=== PATIENT | female | born 1980 | race Hispanic/Latino ===

== ENCOUNTER 2019-09-12 12:19 | Emergency (ER) | payer OTHER ==
[~2019-09-12] VITALS: Ht 149.9 cm; Wt 59.0 kg
[~2019-09-12 12:19] MED LIST: AMLODIPINE BESYL5 MG PO; AUGMENTIN 875-1 EACH PO; CETIRIZINE HCL10 MG PO; LEXAPRO10 MG PO; TYLENOL # 31 EA PO
[2019-09-12] MEDS ORDERED: KETOROLAC TROMETHAMINE 30 MG/ML VIAL IV STA (12:29)
[2019-09-12] MEDS ORDERED: ONDANSETRON HCL INJ 2MG/ML 2ML 2 MG/ML VIAL IV STA (12:29)
[2019-09-12] MEDS ORDERED: SODIUM CHLORIDE 0.9% 1000ML 1,000 ML IV STA (12:29)
[2019-09-12 12:56] LABS: BASOPHILS % 0.4 % (0.0-1.0); EOSINOPHILS # (AUTO) 0.1 (0.0-0.4); EOSINOPHILS % 1.1 % (0.0-6.0); HEMATOCRIT 36.9 % (34.2-44.1); HEMOGLOBIN 12.7 g/dL (12.0-16.0); LYMPHOCYTES # (AUTO) 2.4 (1.0-3.2); LYMPHOCYTES % 25.5 % (18.0-39.1); MEAN CORPUSCULAR HGB CONC 34.4 g/dL (31-35); MONOCYTES # (AUTO) 0.6 (0.2-0.8); MONOCYTES % 6.3 % (4.4-11.3); NEUTROPHILS # (AUTO) 6.2 (2.1-6.9); NEUTROPHILS % 66.3 % (38.7-80.0); PLATELET COUNT 307 x10e3/uL (140-360); RED BLOOD COUNT 4.24 x10e6/uL (3.6-5.1); RED CELL DISTRIBUTION WIDTH 11.7 % (11.7-14.4)
[2019-09-12 13:22] LABS: ALANINE AMINOTRANSFERASE 31 IU/L (0-55); ALBUMIN 4.3 g/dL (3.5-5.0); ALBUMIN/GLOBULIN RATIO 1.3 (0.8-2.0); ALKALINE PHOSPHATASE 45 IU/L (40-150); ANION GAP 13.8 mmol/L (8-16); BLOOD UREA NITROGEN 13 mg/dL (7-26); BUN/CREATININE RATIO 18 (6-25); CALCIUM 9.4 mg/dL (8.4-10.2); CARBON DIOXIDE 24 mmol/L (22-29); CHLORIDE 102 mmol/L (98-107); CREATININE, SERUM 0.74 mg/dL (0.57-1.11); EST GLOMERULAR FILTRATION RATE > 60 ML/MIN (60-); GLUCOSE 100 mg/dL (74-118); POTASSIUM 3.8 mmol/L (3.5-5.1); SODIUM 136 mmol/L (136-145)
[2019-09-12 13:29] LABS: PREGNANCY TEST, URINE NEGATIVE (NEGATIVE)
[2019-09-12 13:30] LABS: BILIRUBIN,URINE NEGATIVE (NEGATIVE); CLARITY,URINE CLEAR (CLEAR); COLOR,URINE YELLOW (YELLOW); KETONES,URINE TRACE (NEGATIVE); LEUKOCYTE ESTERASE ,URINE NEGATIVE (NEGATIVE); NITRITE,URINE NEGATIVE (NEGATIVE); PROTEIN,URINE DIPSTICK NEGATIVE (NEGATIVE); URINE UROBILINOGEN 0.2 mg/dL (0.2 - 1)
[2019-09-12 13:46] LABS: RBC,URINE 0-5 /HPF (0-5); WBC,URINE (MAN) 0-5 /HPF (0-5)
[2019-09-12 13:47] LABS: BACTERIA,URINE MODERATE /HPF; EPITHELIAL CELLS,URINE MODERATE /LPF; HYALINE CASTS 0-1 (0-1); MUCUS,URINE MODERATE (RARE)
--- NOTE | 2019-09-12 14:17 | Diagnostic Imaging Report ---
EXAM: CT Abdomen and Pelvis WITHOUT intravenous contrast INDICATION: Hematuria, flank pain COMPARISON: None. TECHNIQUE: Abdomen and pelvis were scanned utilizing a multidetector helical scanner from the lung base to the pubic symphysis without administration of IV contrast. Coronal and sagittal reformations were obtained. IV CONTRAST: None ORAL CONTRAST: Water COMPLICATIONS: None RADIATION DOSE: Total DLP: 257.6 mGy*cm Dose modulation, iterative reconstruction, and/or weight based adjustment of the mA/kV was utilized to reduce the radiation dose to as low as reasonably achievable. FINDINGS: LOWER THORAX: Unremarkable. HEPATOBILIARY: 1.6 cm right hepatic cyst. No other focal liver lesions. Absent gallbladder. SPLEEN: No splenomegaly. PANCREAS: No focal masses or ductal dilatation. ADRENALS: No adrenal nodules. KIDNEYS/URETERS: 5 mm right proximal ureteral calculus with associated mild right hydroureteronephrosis. Additional 4 mm right upper pole renal calculus and 2 mm right lower pole renal calculus. 2 mm left midpole renal calculus. No left hydronephrosis or hydroureter. PELVIC ORGANS/BLADDER: Unremarkable. PERITONEUM / RETROPERITONEUM: No free air or fluid. LYMPH NODES: No lymphadenopathy. VESSELS: Unremarkable. GI TRACT: No abnormal bowel wall thickening. No bowel obstruction. Normal appendix BONES AND SOFT TISSUES: No acute osseous injury. No suspicious lytic or blastic lesions. IMPRESSION: 5 mm right proximal ureteral calculus with associated mild right hydroureteronephrosis. Additional right renal calculi measure up to 4 mm. Nonobstructive 2 mm left midpole renal calculus. No left hydronephrosis or hydroureter. Signed by: Gwen Boykin MD on 09/12/2019 2:14 PM
[2019-09-12 15:04] VITALS: BP 133/90
[2019-09-14] MEDS ORDERED: LISINOPRIL-HCT1 EAC2 PO (00:52)
== END 2019-09-12 15:05 | disposition home or self-care (01) ==
LOC: ER 12:19
DX: M54.5 Low back pain (principal); R11.0 Nausea; R10.813 Right lower quadrant abdominal tenderness; N20.0 Calculus of kidney; I10 Essential (primary) hypertension; F41.9 Anxiety disorder, unspecified
CPT/HCPCS: 36415; 74176; 80053; 81001; 81025; 85025; 99284; J1885; J2405; J7030

== ENCOUNTER 2019-09-23 07:29 | Observation (INO) | payer OTHER ==
[~2019-09-23] VITALS: Ht 144.8 cm; Wt 64.4 kg
[2019-09-23] MEDS: SODIUM CHLORIDE 0.9% 1000ML 1,000 ML IV SCH ×2 (00:42→11:10)
[~2019-09-23 07:29] MED LIST changes: +LISINOPRIL-HCT1 EAC2 PO
[2019-09-23] MEDS ORDERED: SODIUM CHLORIDE 0.9% 1000ML 1,000 ML IV STA (07:43)
--- NOTE | 2019-09-23 07:50 | NUR ---
PT PLACED ON STRETCHER IN ROOM 8, PVR COMPLETED WITH NO URINE TO NOTE IN BLADDER PER ULTRASOUND; PER DR. MONTGOMERY PT IS TO TAKE HOME DOSE OF LISINOPRIL, TAKING AT THIS TIME; UPDATED ON PLAN OF CARE AND PENDING EXAMS.
[2019-09-23 08:04] LABS: BASOPHILS # (AUTO) 0.1 (0.0-0.1); EOSINOPHILS # (AUTO) 0.3 (0.0-0.4); EOSINOPHILS % 3.9 % (0.0-6.0); HEMATOCRIT 37.1 % (34.2-44.1); HEMOGLOBIN 12.5 g/dL (12.0-16.0); LYMPHOCYTES # (AUTO) 3.2 (1.0-3.2); LYMPHOCYTES % 47.3 % (18.0-39.1); MEAN CORPUSCULAR HEMOGLOBIN 29.8 pg (28-32); MEAN CORPUSCULAR HGB CONC 33.7 g/dL (31-35); MEAN CORPUSCULAR VOLUME 88.5 fL (81-99); MONOCYTES # (AUTO) 0.5 (0.2-0.8); MONOCYTES % 7.2 % (4.4-11.3); NEUTROPHILS # (AUTO) 2.8 (2.1-6.9); NEUTROPHILS % 40.3 % (38.7-80.0); PLATELET COUNT 354 x10e3/uL (140-360); RED BLOOD COUNT 4.19 x10e6/uL (3.6-5.1); RED CELL DISTRIBUTION WIDTH 11.6 % (11.7-14.4)
--- NOTE | 2019-09-23 08:08 | NUR ---
PT REFUSING MEDICATIONS AT THIS TIME, STATES "I AM NOT REALLY IN PAIN, I AM FINE RIGHT NOW, I JUST HAVE INTERMITTENT PRESSURE WHEN I HAVE TO PEE", INFORMED PT ORDERS AND SHE VERBALIZED UNDERSTANDING.
[2019-09-23 08:10] LABS: BILIRUBIN,URINE NEGATIVE (NEGATIVE); COLOR,URINE YELLOW (YELLOW); KETONES,URINE NEGATIVE (NEGATIVE); LEUKOCYTE ESTERASE ,URINE SMALL (NEGATIVE); NITRITE,URINE NEGATIVE (NEGATIVE); PROTEIN,URINE DIPSTICK 2+ (NEGATIVE); URINE UROBILINOGEN 0.2 mg/dL (0.2 - 1)
[2019-09-23 08:11] LABS: CLARITY,URINE HAZY (CLEAR)
[2019-09-23 08:23] LABS: ALANINE AMINOTRANSFERASE 93 IU/L (0-55); ALBUMIN 4.1 g/dL (3.5-5.0); ALBUMIN/GLOBULIN RATIO 1.2 (0.8-2.0); ALKALINE PHOSPHATASE 63 IU/L (40-150); ANION GAP 14.5 mmol/L (8-16); BACTERIA,URINE FEW /HPF; BLOOD UREA NITROGEN 13 mg/dL (7-26); BUN/CREATININE RATIO 19 (6-25); CALCIUM 9.5 mg/dL (8.4-10.2); CARBON DIOXIDE 24 mmol/L (22-29); CHLORIDE 104 mmol/L (98-107); CREATININE, SERUM 0.69 mg/dL (0.57-1.11); EPITHELIAL CELLS,URINE FEW /LPF; EST GLOMERULAR FILTRATION RATE > 60 ML/MIN (60-); GLUCOSE 108 mg/dL (74-118); POTASSIUM 3.5 mmol/L (3.5-5.1); RBC,URINE 21-50 /HPF (0-5); SODIUM 139 mmol/L (136-145)
[2019-09-23] MEDS ORDERED: KETOROLAC TROMETHAMINE 30 MG/ML VIAL IV ONE (08:30)
[2019-09-23] MEDS ORDERED: ONDANSETRON HCL INJ 2MG/ML 2ML 2 MG/ML VIAL IV ONE (08:30)
--- NOTE | 2019-09-23 09:21 | Diagnostic Imaging Report ---
EXAM: CT Abdomen and Pelvis WITHOUT intravenous contrast INDICATION: Flank pain COMPARISON: CT abdomen and pelvis of 09/12/2019 TECHNIQUE: Abdomen and pelvis were scanned utilizing a multidetector helical scanner from the lung base to the pubic symphysis without administration of IV contrast. Coronal and sagittal reformations were obtained. IV CONTRAST: None ORAL CONTRAST: Water COMPLICATIONS: None RADIATION DOSE: Total DLP: 281.3 mGy*cm Dose modulation, iterative reconstruction, and/or weight based adjustment of the mA/kV was utilized to reduce the radiation dose to as low as reasonably achievable. FINDINGS: LOWER THORAX: Normal. HEPATOBILIARY: 1.2 cm segment 8 of liver cyst. No other focal liver lesions. Status post cholecystectomy. SPLEEN: No splenomegaly. PANCREAS: No focal masses or ductal dilatation. ADRENALS: No adrenal nodules. KIDNEYS/URETERS: Right internal nephroureteral stent in good position. 2 mm right lower pole renal calculus. No hydronephrosis. 2 mm nonobstructive left lower pole renal calculus. PELVIC ORGANS/BLADDER: Decompressed bladder. Status post hysterectomy. PERITONEUM / RETROPERITONEUM: No free air or fluid. LYMPH NODES: No lymphadenopathy. VESSELS: Unremarkable. GI TRACT: No abnormal bowel thickening. No bowel obstruction. Normal appendix. BONES AND SOFT TISSUES: Unremarkable. IMPRESSION: Right internal nephroureteral stent in good position. 2 mm right and left lower pole renal calculi. No hydronephrosis. Signed by: Gwen Boykin MD on 09/23/2019 9:17 AM
[2019-09-23] MEDS ORDERED: ONDANSETRON HCL INJ 2MG/ML 2ML 2 MG/ML VIAL IV PRN (09:45)
[2019-09-23] MEDS ORDERED: MORPHINE SULFATE 2 MG/ML SYR 1ML IV PRN (09:45)
[2019-09-23] MEDS ORDERED: CEFTRIAXONE SOD 1 GM/NS 50 ML 50 ML IV ONE (10:00)
--- NOTE | 2019-09-23 10:10 | NUR ---
received pt from ER via wheelchair. pt is sitting up in bed, no s/s of distress. pt oriented to room, call light and instructed pt to call RN for help
[2019-09-23 10:29] VITALS: BP 150/87
[2019-09-23 10:39] VITALS: BP 150/87
[2019-09-23] MEDS ORDERED: CEFTRIAXONE SOD 1 GM/NS 50 ML 50 ML IV SCH ×3 (11:00→22:00)
[2019-09-23 12:21] VITALS: BP 130/85
[2019-09-23] MEDS ORDERED: DEXAMETHASONE SOD PHOS INJ 4 MG/ML VIAL ONE (14:48)
[2019-09-23] MEDS ORDERED: LIDOCAINE HCL 2% LOCAL INJ 5 ML SDV VIAL INJ ONE (14:48)
[2019-09-23] MEDS ORDERED: PROPOFOL IV EMULSION 10 MG/ML 20 ML VIAL ONE (14:48)
[2019-09-23] MEDS ORDERED: ONDANSETRON HCL INJ 2MG/ML 2ML 2 MG/ML VIAL ONE (14:48)
[2019-09-23] MEDS ORDERED: B&O 60MG R/S 60 MG SUPP PR ONE (15:30)
[2019-09-23] MEDS ORDERED: IOPAMIDOL 300MG/ML 50ML INFUS..BTL IV ONE (15:30)
[2019-09-23] MEDS ORDERED: ACETAMINOPHEN/CODEINE 300MG - 30MG TAB PO PRN (15:45)
[2019-09-23] MEDS: PHENAZOPYRIDINE HCL 100 MG TAB PO SCH (17:15)
[2019-09-23] MEDS: MORPHINE SULFATE INJ 4 MG/ML INJ 1ML IV PRN ×2 (17:16→21:09)
--- NOTE | 2019-09-23 17:44 | NUR ---
transferred pt to [facility] 1 room 113 via wheelchair. gave bedside report to STEPHANIE Lynn
--- NOTE | 2019-09-23 18:00 | NUR ---
PT TO THE FLOOR WITH VITALS WNL. PT DENIES NEEDS AT THIS TIME.
--- NOTE | 2019-09-23 19:05 | NUR ---
Pt visited in room during nursing rounds. Patient alert and oriented x3. Ambulatory in room prn. Pt just vomited 200ml light pink liquid. Pt states her pain level and nausea has gone better. Pt on IVF (NS at 100ml/hr). Mother and pt at bedside visiting. Call david within reach. Will monitor closely.
[2019-09-23] MEDS ORDERED: FENTANYL CITRATE/PF 100MCG/2 ML INJ ONE (19:35)
[2019-09-23] MEDS ORDERED: MIDAZOLAM HCL 2 MG/2 ML VIAL ONE (19:35)
[2019-09-23 20:08] VITALS: BP 150/103
[2019-09-23 20:09] VITALS: BP 177/89
--- NOTE | 2019-09-23 20:20 | NUR ---
Called Radha Dunbar and informed patient's elevated BP of 177/89. MD aware and ordered to resume home med (Lisinopril/HCTZ for tomorrow) and ordered Clonidine 0.1 mg PO Q4hr prn for SBP > 170.
[2019-09-23] MEDS ORDERED: CLONIDINE HCL 0.1 MG TAB PO PRN (20:30)
[2019-09-23 23:40] VITALS: BP 121/77
[2019-09-24 04:39] VITALS: BP 102/73
[2019-09-24 05:39] LABS: BASOPHILS % 0.3 % (0.0-1.0); HEMATOCRIT 35.6 % (34.2-44.1); HEMOGLOBIN 12.1 g/dL (12.0-16.0); LYMPHOCYTES # (AUTO) 1.5 (1.0-3.2); MEAN CORPUSCULAR VOLUME 88.1 fL (81-99); MONOCYTES # (AUTO) 0.4 (0.2-0.8); MONOCYTES % 5.2 % (4.4-11.3); NEUTROPHILS % 72.1 % (38.7-80.0); PLATELET COUNT 341 x10e3/uL (140-360); RED BLOOD COUNT 4.04 x10e6/uL (3.6-5.1); RED CELL DISTRIBUTION WIDTH 11.3 % (11.7-14.4)
[2019-09-24 06:03] LABS: BLOOD UREA NITROGEN 8 mg/dL (7-26); BUN/CREATININE RATIO 13 (6-25); CALCIUM 8.9 mg/dL (8.4-10.2); CARBON DIOXIDE 21 mmol/L (22-29); CHLORIDE 105 mmol/L (98-107); CREATININE, SERUM 0.64 mg/dL (0.57-1.11); EST GLOMERULAR FILTRATION RATE > 60 ML/MIN (60-); GLUCOSE 119 mg/dL (74-118); SODIUM 135 mmol/L (136-145)
[2019-09-24 06:19] LABS: ANION GAP 13.5 mmol/L (8-16)
[2019-09-24 06:21] LABS: POTASSIUM 4.5 mmol/L (3.5-5.1)
--- NOTE | 2019-09-24 07:23 | NUR ---
PATIENT SITTING UP IN BED TALKING ON THE PHONE, NO DISTRESS NOTED. DENIED PAIN AND DISCOMFORT. IV FLUID INFUSING ORDERED. BED IN LOWER POSITION, CALL LIGHT AT REACH.
[2019-09-24 08:28] VITALS: BP 109/75
[2019-09-24] MEDS: PHENAZOPYRIDINE HCL 100 MG TAB PO SCH ×2 (08:57→13:12)
[2019-09-24] MEDS ORDERED: HYDROCHLOROTHIAZIDE 25 MG TAB PO SCH (09:00)
[2019-09-24] MEDS ORDERED: LISINOPRIL 10 MG TAB PO SCH (09:00)
--- NOTE | 2019-09-24 11:34 | NUR ---
PATIENT ASSISTED TO THE RESTROOM AND BACK TO CHAIR. CALL LIGHT AT EASY REACH.
[2019-09-24 12:14] VITALS: BP 103/73
--- NOTE | 2019-09-24 15:36 | NUR ---
PATIENT IS ABOUT TO BE DISCHARGED, AWAITING FOR UROLOGIST TO CLEAR FOR DISCHARGE. CALL LIGHT AT REACH.
[2019-09-24] MEDS ORDERED: CIPROFLOXACIN 500 MG TAB PO SCH ×2 (16:00→21:00)
[2019-09-24 16:16] VITALS: BP 101/68
--- NOTE | 2019-09-24 16:45 | NUR ---
PATIENT DISCHARGED HOME. DISCHARGE INSTRUCTIONS, PRESCRIPTION, AND FOLLOW UP GIVEN TO PATIENT. SHE VERBALIZED UNDERSTANDING. IV TO RIGHT AC REMOVED WITH TIP INTACT. ALL PERSONAL ITEMS TAKEN WITH PATIENT. REFUSED WHEEL CHAIR, BUT WAS ACCOMPANIED TO FRONT LOBBY BY HOSPITAL STAFF IN STABLE CONDITION.
--- NOTE | 2019-09-25 14:25 | Discharge Summary ---
PRIMARY CARE DOCTOR: Dr. Jahaira Myles. FINAL DIAGNOSIS: Nephrolithiasis. SECONDARY DIAGNOSES: 1. Enterococcal urinary tract infection. 2. Hypertension. CASTING CHIPPER: Dr. Aguillon, Urology. PROCEDURES/STUDIES PERFORMED: Cystoscopy with removal of stones and removal of right-sided urethral stent. HISTORY: Per [facility] HOSPITAL COURSE: The patient was put on antibiotic. The patient underwent cysto and currently, the patient is feeling well. She does not have any more discomfort. The patient will follow up with her primary care doctor in one week. The patient was seen and examined today. CONDITION ON DISCHARGE: Improved. DISCHARGE MEDICATIONS: Please see medication reconciliation form. Yiching MD KRISTIAN Conley/SELVIN /[id number] cc: [facility]
--- NOTE | 2019-12-06 03:56 | Operative Report ---
DATE OF PROCEDURE: 09/23/2019 SURGEON: Alexandr Aguillon MD PREOPERATIVE DIAGNOSES: 1. Right ureterolithiasis. 2. Right nephrolithiasis. 3. Indwelling ureteral stent. 4. Stress type urinary incontinence. POSTOPERATIVE DIAGNOSES: 1. Right ureterolithiasis. 2. Right nephrolithiasis. 3. Indwelling ureteral stent. 4. Stress type urinary incontinence. 5. Grade 1 cystocele. 6. Grade 1 rectocele. 7. Urethral hypermobility. OPERATIONS PERFORMED: 1. Cystourethroscopy with complicated removal of right indwelling ureteral stent (separate procedure performed for the diagnosis of the stent done with separate scope). 2. Right ureteroscopy with holmium laser lithotripsy and stone extraction (separate procedure performed for the right ureterolithiasis, done with separate scope). 3. Right flexible ureteropyeloscopy with stone manipulation and extraction (separate procedure performed for the right nephrolithiasis). 4. Interpretation of retrograde ureteropyelography. 5. Supervision of fluoroscopy, no radiologist present. 6. Radiological services for supervision and interpretation of ureteroscopy. 7. Pelvic examination under anesthesia. ANESTHESIA: General. COMPLICATIONS: None. CLINICAL SUMMARY: Dilia Martinez is a 39-year-old woman with stent and stones. She is brought for management in hopes of rendering her stent free and stone free on the right-hand side. She is aware of the risks of bleeding, infection, injury to adjacent structures, need for additional procedures elected to proceed. OPERATIVE PROCEDURE IN DETAIL: Informed consent verified. Dilia Martinez was properly identified taken to the operating room, placed on the cystoscopy table in supine position. Anesthesia was uneventfully begun. The patient was then carefully gently repositioned in dorsal lithotomy position with all pressure points well padded. Her genitalia were prepared and draped in usual sterile fashion. Cystoscope sheath with obturator in place was atraumatically inserted into the patient's urethra and bladder was drained. Panendoscopy revealed no suspicious mucosal lesions, no tumors, no stones, and no diverticula. There was a stent emerging from the right ureteral orifice. A guidewire was then placed alongside the stent and guided to the level of the patient's kidney. The stent was then grasped, completely removed and discarded. Semi-rigid ureteroscope was then placed alongside the guidewire and guided into the patient's right ureter we identified stone burden. We utilized holmium laser lithotripsy to break the stone burden up into smaller stones. Then utilized Nitinol tipless basket to extract all the stone fragments. There was a very minimal amount of trauma to the ureter from this manipulation. Flexible ureteroscope was then brought up over the guidewire and guided to the level of the patient's kidney. Panendoscopy revealed Jaren's plaques and small stone. The stone was grasped with Nitinol tipless basket and extracted completely atraumatically. As we did this, we examined the ureter which was wide open without any strictures without any significant trauma. Interpretation of retrograde ureteropyelography contrast was instilled in a retrograde fashion on the right-hand side. There was mild fullness. There were no suspicious lesions. No extravasation was noted. The patient's bladder was drained. Cystoscope was withdrawn. Pelvic examination revealed a grade 1 cystocele, grade 1 rectocele, there was urethral hypermobility. No abnormal palpable pelvic masses were appreciated. The patient was then uneventfully reversed from anesthesia and taken to recovery room in stable condition. There were no complications to the procedure. She tolerated procedure well. Plans will be to keep the patient overnight in the hospital to observe her and ensure she has adequate pain control. Ongoing urological followup is must. I instructed the patient also to perform Kegel exercises to help with her stress incontinence. Future management should the patient followup is recommended would include the metabolic stone workup and stone prevention regimen as well as managing the patient's urinary incontinence. Alexandr Aguillon MD [place]/MODL /[id number] cc: Alexandr Aguillon MD
== END 2019-09-24 16:30 | disposition home or self-care (01) ==
LOC: ER 07:29 → ERHOLD 09:38 → MED/SURG3 10:10 → MED/SURG 17:38
PROVIDERS: ADMIT Internal Medicine; ATTEND Internal Medicine
DX: N20.2 Calculus of kidney with calculus of ureter (principal); Z87.442 Personal history of urinary calculi; N30.01 Acute cystitis with hematuria; Z96.0 Presence of urogenital implants; B95.2 Enterococcus as the cause of diseases classified elsewhere; I10 Essential (primary) hypertension; N39.3 Stress incontinence (female) (male); N81.10 Cystocele, unspecified; N81.6 Rectocele; N36.41 Hypermobility of urethra; K21.9 Gastro-esophageal reflux disease without esophagitis; Z83.3 Family history of diabetes mellitus; Z82.49 Family history of ischemic heart disease and other diseases of the circulatory system; Z80.9 Family history of malignant neoplasm, unspecified
CPT/HCPCS: 36415; 74176; 74420; 80048; 80053; 81001; 81025; 83970; 84550; 85025; 87086; 87186; 88300; 99284; C1769; G0378; J0696; J1100; J2001; J2250; J2270; J2405; J3010; J7030